=== PATIENT | female | born 2000 | race Caucasian/White ===

== ENCOUNTER 2019-11-26 17:16 | Emergency (ER) | payer BC ==
[~2019-11-26] VITALS: Ht 149.9 cm; Wt 64.6 kg
[2019-11-26 17:21] VITALS: BP 105/58
--- NOTE | 2019-11-26 18:11 | NUR ---
PT AMBULATED TO BATHROOM FOR URINE SAMPLE, STEADY GAIT.
--- NOTE | 2019-11-26 18:39 | NUR ---
19 Y/F PRESENTS WITH MOM TO ED FOR BACK PAIN "SPINAL" X 1 YEAR, PT REPORTS PAIN HAS BEEN WORSEING THIS WEEK. 10/10 INTERMITTENT PAIN, DENIES INJURY AND HAS NOT BEEN SEEN FOR THIS BEFORE. PAIN STARTS AT MID BACK AND RADIATES TO UPPER BACK. PT REPORTS TAKING ALEVE AND MOTRIN AT HOME AND NO RELIEF. PT DENIES ANY URINARY FREQUENCY OR BURNING. RR EVEN AND UNLABORED, NO DISTRESS NOTED. HX- ASTHMA NKDA
--- NOTE | 2019-11-26 19:06 | NUR ---
Pt report given to HOWIE NAVA. Transfer of care at this time.
--- NOTE | 2019-11-26 19:07 | NUR ---
RECEIVED REPORT FROM HOWIE RIZO
[2019-11-26 19:45] VITALS: BP 105/58
--- NOTE | 2019-11-26 19:46 | NUR ---
PT DC'D BY DR SINGLETON. TEACHING AND DISCHARGE INSTRUCTIONS GIVEN BY .
== END 2019-11-26 19:41 | disposition home or self-care (01) ==
LOC: MED 17:16
DX: N12 Tubulo-interstitial nephritis, not specified as acute or chronic (principal); J45.909 Unspecified asthma, uncomplicated
CPT/HCPCS: 81002; 81025; 99283

== ENCOUNTER 2020-06-28 21:55 | Inpatient (IN) | payer BC ==
[~2020-06-28] VITALS: Ht 149.9 cm; Wt 54.9 kg
[2020-06-28 22:01] VITALS: BP 129/70
--- NOTE | 2020-06-28 22:04 | NUR ---
To ED bed 09
--- NOTE | 2020-06-28 22:13 | NUR ---
PT AMBULATED TO RR WITH STEADY GAIT. DENIES NEED FOR ASSISTANCE
--- NOTE | 2020-06-28 22:15 | NUR ---
20 YO F BIB SELF FOR C/C OF 7/10 EPIGASTRIC PAIN X2 DAYS. PER PT SHE HAS HAD N/V/D X2 DAYS AND UNABLE TO HOLD DOWN FOODS/LIQUIDS. PT PRESENTS AFEBRILE AND TACCHYCARDIC. S1S2 HEARD, BOWEL SOUNDS NORMOACTIVE THROUGHOUT. PT DENIES COUGH, SOB, AND TRAVEL. PT TOOK TYLENOL AND 8MG ZOFRAN TAB AT 1800 WITHOUT RELIEF OF PAIN OR NAUSEA. PT PLACED IN GOWN AND PLACED ON CARDIAC MONIOR. BED LOCKED AND IN LOWEST POSITION. SIDE RAILS X1. MED HX: ASTHMA NKA
--- NOTE | 2020-06-28 22:25 | NUR ---
UA/labs collected and sent to lab
[2020-06-28] MEDS ORDERED: NACL 0.9% 1,000 ML IV ONE ×2 (22:30→23:00)
[2020-06-28 22:34] LABS: BASOPHILS % (AUTO) 0.5 % (0.0-2.0); EOSINOPHILS # (AUTO) 0.1 K/uL (0-0.4); EOSINOPHILS % (AUTO) 3.2 % (0.0-4.0); HEMATOCRIT 41.2 % (36-48); HEMOGLOBIN 14.3 g/dL (12.0-16.0); LYMPHOCYTES # (AUTO) 1.6 K/uL (2.5-16.5); LYMPHOCYTES % (AUTO) 36.4 % (20.5-51.1); MEAN CORPUSCULAR HEMOGLOBIN 28 pg (27-31); MEAN CORPUSCULAR HGB CONC 35 g/dL (33-37); MEAN CORPUSCULAR VOLUME 80.7 fL (80-94); MONOCYTES # (AUTO) 0.7 K/uL (0.8-1.0); MONOCYTES % (AUTO) 16.7 % (1.7-9.3); NEUTROPHILS # (AUTO) 1.9 K/uL (1.8-7.7); NEUTROPHILS % (AUTO) 43.2 % (42.2-75.2); PLATELET COUNT (AUTO) 245 K/uL (140-450); RED BLOOD CELL COUNT(AUTO) 5.11 MIL/uL (4.20-5.40); WHITE BLOOD COUNT (AUTO) 4.4 K/uL (4.8-10.8)
[2020-06-28] MEDS ORDERED: ONDANSETRON 4 MG/2 ML VIAL IVP ONE (22:45)
[2020-06-28 22:50] LABS: ALBUMIN 3.5 g/dL (3.4-5.0); ANION GAP 13.7 (8-16); CARBON DIOXIDE 26.5 mmol/L (21-32); CREATININE 0.7 mg/dL (0.6-1.3); POTASSIUM 3.2 mmol/L (3.5-5.1); TOTAL BILIRUBIN 0.6 mg/dL (0.0-1.0)
--- NOTE | 2020-06-28 22:59 | NUR ---
ERMD AT BEDSIDE
[2020-06-28] MEDS ORDERED: MORPHINE SULFATE 2 MG/ML SYR IVP ONE ×2 (23:00→23:40)
[2020-06-28] MEDS ORDERED: KETOROLAC 30 MG/ML VIAL IVP ONE (23:00)
--- NOTE | 2020-06-28 23:36 | NUR ---
PT STATES SHE IS FEELING ANXIOUS. EPIGASTRIC PAIN STILL 7/10 AT THIS TIME. PT IS TACCHYCARDIC AT 126 AFTER SECOND BOLUS FINSIHED. DANTED MADE AWARE.
--- NOTE | 2020-06-28 23:39 | NUR ---
[facility] CALLED FOR US. TECH STATED SOMEONE IS IN ROUTE FROM [place] [place].
--- NOTE | 2020-06-28 23:54 | NUR ---
CALLED PTS MICHELLE LUNDBERG PER PTS REQUEST TO BRING PTS CELL PHONE.
--- NOTE | 2020-06-29 00:02 | NUR ---
US AT BEDSIDE
[2020-06-29] MEDS ORDERED: ONDANSETRON 4 MG/2 ML VIAL IVP ONE (00:15)
--- NOTE | 2020-06-29 00:34 | NUR ---
PT HAVING EPISODE OF VOMITING POST IVP ZOFRAN. UNABLE TO TRY PO TEST DOC ASKED.
[2020-06-29 00:36] LABS: APPEARANCE,URINE CLOUDY (CLEAR); BILIRUBIN,URINE 1+ (NEGATIVE); BLOOD, URINE TRACE-I (NEGATIVE); COLOR,URINE YELLOW (YELLOW); LEUKOCYTE ESTERASE ,URINE NEGATIVE (NEGATIVE); NITRITE, URINE NEGATIVE (NEGATIVE); UGLUCOSE NEGATIVE (NEGATIVE)
[2020-06-29] MEDS ORDERED: fentaNYL citrate 0.05 MG/ML VIAL IVP ONE (00:40)
[2020-06-29] MEDS ORDERED: PIPERACILLIN/TAZOBACTAM 3.375 GM in DEXTROSE 5% 50 ML IV ONE (00:40)
[2020-06-29] MEDS ORDERED: ACETAMINOPHEN 650 MG SUPP RC ONE (00:40)
[2020-06-29] MEDS ORDERED: PIPERACILLIN/TAZOBACTAM 3.375 GM VIAL IV ONE (00:51)
[2020-06-29 00:54] LABS: RBC,URINE 0-5 /HPF (0-5)
[2020-06-29 00:55] LABS: CALCIUM OXALATE CRYSTALS,UR 0-10 /HPF (None Seen); FINE GRANULAR CASTS,URINE 0-10 /LPF (None Seen)
--- NOTE | 2020-06-29 01:03 | NUR ---
PT CONTINUES TO HAVE EPISODES OF VOMITING. PT STATES HER PAIN IS 7/10 BEFORE IVP OF FENTNYL .
[2020-06-29] MEDS ORDERED: diphenhydrAMINE 50 MG/ML VIAL IVP ONE (01:25)
[2020-06-29] MEDS ORDERED: METOCLOPRAMIDE 10 MG/2 ML INJ VIAL IVP ONE (01:25)
--- NOTE | 2020-06-29 01:37 | NUR ---
GAVE PT ONLY 12.5MG OF BENADRYL TO START PER ERMD VERBAL ORDER NADR
--- NOTE | 2020-06-29 01:54 | NUR ---
PT STATES HER N/V HAS SUBSIDED POST IVP OF REGLAN. PTS PAIN IS STILL 7/10.
--- NOTE | 2020-06-29 01:55 | NUR ---
PTS PAIN 5/10
--- NOTE | 2020-06-29 01:58 | NUR ---
ATTEMPTED TO CONTACT ADMITTING PHYSICIAN DR. FERNANDEZ REGARDING POTENTIAL UPGRADE TO TELE DUE TO PTS TACCHYCARDIA. ENDORSED PT TO MST NURSE FOR FOLLOW UP REGARDING THIS MATTER.
--- NOTE | 2020-06-29 02:15 | NUR ---
ADMITTED 20, FEMALE, NO DISTRESS, ON ROOM AIR, DENIES PAIN, AMBULATORY, RAC 20, INTACT, MRSA SWAB DONE, V/S TAKEN, SAFETY MEASURES IN PLACE, CALL LIGHT WITHIN REACH.
--- NOTE | 2020-06-29 02:15 | NUR ---
Patient will be admitted to care of [facility]. Admited to [facility]. Will go to room 106A. Belongings list completed. Report to HOWIE RALPH.
[2020-06-29] MEDS: DEXTROSE 5% 1,000 ML IV SCH ×2 (02:44→13:53)
--- NOTE | 2020-06-29 03:13 | NUR ---
INFORMED DR. FERNANDEZ ABOUT PATIENT'S HR OF 128. NO NEW ORDER. CALL LIGHT WITHIN REACH, WILL MONITOR.
[2020-06-29 04:00] VITALS: BP 101/48
--- NOTE | 2020-06-29 04:00 | NUR ---
V/S TAKEN, BP 101/48, HR WENT DOWN TO 113. NO DISTRESS, WILL MONITOR.
--- NOTE | 2020-06-29 07:20 | NUR ---
PATIENT IS IN STABLE CONDITION, DENIES PAIN, NO DISTRESS, DR. FERNANDEZ IS INSIDE THE PATIENT'S ROOM TALKING TO PATIENT. ENDORSED TO HOWIE NEFF FOR CONTINUITY OF CARE.
--- NOTE | 2020-06-29 07:26 | NUR ---
RECEIVED REPORT FROM MANAGER SCIENCE RN FOR CONTINUITY OF CARE. DR. FERNANDEZ WAS WITH THE PATIENT AT BEDSIDE. RESPIRATORY EVEN AND UNLABORED. SKIN WARM AND DRY. INTACT. IV SITE RIGHT AC 20G, INFUSING D5 @ 60 CC/HR. ON TELE MONITOR. NO ACUTE DISTRESS NOTED. SAFETY MEASURES IN PLACE, WILL CONTINUE TO MONITOR.
[2020-06-29 08:00] VITALS: BP 103/52
[2020-06-29] MEDS ORDERED: POTASSIUM CHLORIDE 10 MEQ TABER PO PRN (08:05)
[2020-06-29] MEDS ORDERED: ACETAMINOPHEN 325 MG TAB PO PRN (08:05)
[2020-06-29] MEDS ORDERED: guaiFENesin DM 200/20 MG-10 ML 10 ML UDC PO PRN (08:05)
[2020-06-29] MEDS ORDERED: DOCUSATE SODIUM 100 MG GELCAP PO PRN (08:05)
[2020-06-29] MEDS ORDERED: ZOLPIDEM 5 MG TAB PO PRN (08:05)
--- NOTE | 2020-06-29 08:35 | NUR ---
PATIENT WAS TRANSFERRED TO RADIOLOGY TO HAVE ABD/PELVIS CT. WILL FOLLOW UP
--- NOTE | 2020-06-29 08:46 | NUR ---
PATIENT WAS BROUGHT BACK TO THE FLOOR POST ABD/ PELVIS CT. WILL FOLLOW UP.
--- NOTE | 2020-06-29 08:48 | NUR ---
PATIENT HAS BEEN SCREENED AND CATEGORIZED MODERATE NUTRITION RISK. PATIENT WILL BE SEEN WITHIN 3-5 DAYS OF ADMISSION. 07/01/20 07/03/[address]
[2020-06-29] MEDS ORDERED: POTASSIUM CHLORIDE 40 MEQ, LIDOCAINE MPF 1% 25 MG in NACL 0.9% 250 ML IV SCH (09:00)
--- NOTE | 2020-06-29 09:35 | NUR ---
SOCIAL WORK NOTE: Patient's Orientation Person Situation Place Time Information Provided By PATIENT Comments SW COMPLETED ASSESSMENT WITH PATIENT TELEPHONICALLY AND VERIFIED DEMOGRAPHICS. Boat Builder, Realtionship and Phone Number TAMIKA VASQUEZ [phone] Healthcare Power of Superintendent Generating Plant No Does Patient Have a POLST No Identifying Problems No Social Work Triggers Is A Social Work Consult Needed No Mandate Report Filed No Explanation Of Identifying Problems PATIENT IS A 20-YEAR-OLD FEMALE ADMITTED FOR INTRACTABLE VOMITING. PATIENT HAS PMHX OF ASTHMA. Admitted From Home Pre-Admission Level Of Functioning Status Independent/Ambulatory Prior Resources/Services Used In Last 12 Months No Prior Resources Used Prior DME No Prior DME Used Dialysis Comments PATIENT REPORTED THAT SHE DOES NOT RECEIVE DIALYSIS. Living Situation Lives With Family House Patient Had Caregiver No Home Support No Caregiver Issues Financial Issues No Known Financial Issue Referral To The Financial Counselor Needed No Factors/Needs No D/C Needs Identified Pt/Rep Participated In Discharge Plan Yes Patient/Family Agress With Discharge Plan Yes Discharge Plan Comments TENTATIVE DISCHARGE PLAN IS FOR PATIENT TO RETURN HOME. DC Plan Status Initiated
[2020-06-29] MEDS: PANTOPRAZOLE 40 MG TABEC PO SCH (09:42)
--- NOTE | 2020-06-29 09:42 | NUR ---
Dino MCCORMICK ADMINISTERED FOR POTASSIUM LEVEL 3.2, EDUCATION PROVIDED, SAFETY MEASURES IN PLACE, WILL CONTINUE TO MONITOR.
--- NOTE | 2020-06-29 10:57 | NUR ---
DISCHARGE PLANNING: THIS IS A 20 Y/O FEMALE PATIENT FROM HOME, WHO CAME IN DUE TO ABDOMINAL PAIN, DIARRHEA AND VOMITING. NO KNOWN PAST MEDICAL HISTORY. INITIAL DIAGNOSIS OF INTRACTABLE VOMITING. CURRENT LABS INCLUDE WBC 4.4, H/H 14.3/41.2, NA/K 138/3.2, BUN/CREA 15/0.7, AST/ALT 355/258, ALK PHOS 159. GALLBLADDER US NORMAL. CXR NEGATIVE. CT ABD/PELVIS NON SPECIFIC MUCOSAL THICKENING OF THE DISTAL SMALL BOWEL WHICH MAY BE RELATED TO UNDERDISTENTION OR MILD ENTERITIS. GI CONSULT IN PLACE. DC PLAN BACK TO HOME ONCE STABLE. Addendum: 06/29/20 at 1128 by Leah Self CM CONTACTED GAUTAM MTZ OF [employer] AT [phone] TO INFORM WITH THIS ADMISSION. PER SMITH, SHE CAN HELP ME FIND THIS PATIENT HOWEVER SHE COULD NOT GUARANTEE THAT SHE CAN HELP. SHE WAS ABLE TO FIND THE PATIENT IN THEIR SYSTEM, BUT SHE COULD NOT ACCESS IT. SHE WAS ASKING IF I HAVE A UM NUMBER SO SHE CAN LOCATE IT WHICH I TOLD HER THAT WE DO NOT HAVE ONE YET. SHE ALSO INQUIRED IF WE BUILT A PROFILE ON THIS PATIENT VIA THEIR PORTAL, INFORMED HER THAT I WILL ASK ADMITTING. INFORMED VERONICA CHILDREN LIBRARIAN, HOWEVER SHE IN ON THE PHONE WITH [employer]. WILL FOLLOW UP. Addendum: 06/29/20 at 1138 by Leah Self CM PER CHILDREN LIBRARIAN ROSA, SHE IS IN THE PROCESS OF MAKING A PROFILE FOR THIS PATIENT IN THE [employer] PORTAL. Addendum: 06/30/20 at 1203 by Leah Self CM LATE ENTRY: CONTACTED GAUTAM MTZ OF [employer] [facility]. PER SMITH, THEY RECEIVED MULTIPLE FACE SHEETS AND SHE COULD NOT IDENTIFY THE EXACT ADMIT DATE. THEY RECEIVED ONE DATED Jun AND Jun. INFORMED HER THAT THE PATIENT CAME TO OUR ED ON Jun AT 2155 AND GOT ADMITTED 06/29 AT 0133. I ASKED HER IF SHE HAVE AN AVAILABLE AUTH FOR US. PER SMITH, SHE STILL HAVE TO REVIEW CLINICALS. I ALSO INQUIRED SINCE WE ARE NOT A CONTRACTED FACILITY IF THEY WANT TO TRANSFER THE PATIENT TO THEIR CONTRACTED FACILITY. SHE STATED I HAVE TO REACH OUT TO THEIR DCP COORDINATOR ALANNA AT [phone]. CONTACTED THE PROVIDED NUMBER. PER ALANNA, IF PATIENT IS STABLE TO BE TRANSFERRED, THEY ARE CONTRACTED WITH [facility] AND [facility]. INFORMED HER THAT [facility] IS OUT SISTER FACILITY. SHE STATED TO GO AHEAD AND SEND THE REFERRAL TO [facility]. AND FOR TRANSPORT WE CAN USE [facility]. INFORMED HER THAT THE ONLY AMBULANCE WE CAN USE IN [place] IS [facility]. SHE STATED THEY ARE NOT CONTRACTED WITH THEM, HOWEVER, IF PATIENT NEEDS TO BE TRANSFERRED OUT WE CAN GO AHEAD AND USE [facility]. PER DR. FERNANDEZ, PATIENT IS STABLE FOR TRANSFER TO CONTRACTED FACILITY, HOWEVER WE ARE DOING HIDA SCAN TODAY AND ANTICIPATE DC TOMORROW. ALANNA OF [facility] MADE AWARE. PER ALANNA I HAVE TO REACH OUT TO SMITH. GAUTAM MTZ MADE AWARE, SHE STATED COULD NOT PROVIDE ME ANY AUTH AT THIS TIME, REVIEW IS STILL PENDING. SHE STATED SHE CANNOT SAY IF IT IS DENIED OR APPROVED UNTIL THEIR PHYSICIAN'S DECISION. SHE STATED, SHE CAN ADD IT ON THE REVIEW THAT PATIENT WILL GET HIDA SCAN TODAY. WILL FOLLOW UP. Addendum: 06/30/20 at 1315 by Leah Self LATE ENTRY: MET WITH THE PATIENT AT THE BEDSIDE TO DISCUSS PLAN TO TRANSFER TO CONTRACTED FACILITY. PER PATIENT TO CONTACT HIS FATHER. CONTACTED PATIENT'S FATHER TAMIKA AVENDAÑO AT [phone] TO DISCUSS PLAN AND IS IN AGREEMENT. Addendum: 07/01/20 at 1147 by Leah Self CM DISCUSSED DC PLAN WITH DR. DESOUZA. PER DR. DESOUZA STILL AWAITING FOR DR. NI'S RECOMMENDATIONS. CONTACTED GAUTAM MTZ OF [employer] AT [phone], NO ANSWER. LEFT MESSAGE. Addendum: 07/01/20 at 1238 by Leah Self RECEIVED A CALL BACK FROM GAUTAM MTZ [phone] STATING A VERBAL DENIAL FROM DATES 06/29-06/30/2020. SHE ALSO STATED THEY ARE REQUESTING PEER TO PEER DELONTE WITH DR. HELEN ERVIN AT [phone]. [facility] COORDINATOR MADE AWARE. Addendum: 07/01/20 at 1418 by Stormy Clifton DC PLANNING: RECEIVED A CALL FROM [employer] SPOKE WITH ALFRED STATED THE CASE DENIES FOR THE HOSPITAL STAY FROM 06/29-07/01 AND PEER TO PEER SCHEDULED ON THURSDAY 07/05 BY [facility] SANCHEZ DEPARTMENT. GAUTAM TO FOLLOW
--- NOTE | 2020-06-29 11:15 | NUR ---
CHECKED PATIENT. RESTING IN BED, NOT IN ACUTE DISTRESS NOTED. NO BM OR LOOSE STOOL TODAY. DENIES NAUSEA, VOMITING OR DIARRHEA.
[2020-06-29 12:00] VITALS: BP 120/59
[2020-06-29 12:27] LABS: AMYLASE 83 U/L (25-115); CHOL/HDL RATIO 1.9 (1-4.5); HDL CHOLESTEROL 34 mg/dL (40-60); LDL (CALC) 23 mg/dL (60-100); MAGNESIUM 1.7 mg/dL (1.8-2.4); PHOSPHORUS 3.7 mg/dL (2.5-4.9); TRIGLYCERIDES 44 mg/dL (30-150)
[2020-06-29 12:28] LABS: FREE T4 (FREE THYROXINE) 9.98 ng/dL (0.76-1.46); THYROID STIMULATING HORMONE < 0.01 uIU/mL (0.34-3.74)
[2020-06-29 12:34] LABS: PROTHROMBIN TIME 11.1 secs (10.8-13.4)
--- NOTE | 2020-06-29 13:05 | NUR ---
MADE ROUNDS. PATIENT RESTING IN BED, WITH MILD EPIGASTRIC PAIN. PATIENT STATED THAT DOESNT NEED PAIN MEDS. NON PHARMACOLOGICAL PAIN MANAGEMENT INSTRUCTED. DISTRACTION AND RELAXATION TECHNIQUE, PATIENT VERBALIZED UNDERSTANDING. SAFETY MEASURES IN PLACE, WILL CONTINUE TO MONITOR.
--- NOTE | 2020-06-29 15:45 | NUR ---
PATIENT AWAKE, WATCHING TV, DENIES DISCOMFORT. SAFETY MEASURES IN PLACE, WILL CONTINUE TO MONITOR.
[2020-06-29 16:00] VITALS: BP 117/67
--- NOTE | 2020-06-29 19:15 | NUR ---
RECEIVED REPORT FROM KIKE RNAISHWARYA. PT AOX4 ON ROOM AIR. NO S/S RESPIRATORY DISTRESS. NO C/O PAIN AT THIS TIME. IV SITE RAC20G INTACT AND PATENT, RUNNING D5 AT 100ML/HR. SKIN WARM DRY INTACT. BOWEL SOUNDS ACTIVE. SAFETY MEASURES IN PLACE, CALL LIGHT WITHIN REACH. WILL CONTINUE TO MONITOR.
--- NOTE | 2020-06-29 19:15 | NUR ---
ENDORSED PATIENT TO STAFF ANESTHESIOLOGIST RN FOR CONTINUITY OF CARE. PATIENT IN STABLE CONDITION.
[2020-06-29 20:00] VITALS: BP 114/50
[2020-06-29] MEDS: METOCLOPRAMIDE 10 MG/2 ML INJ VIAL IVP SCH (20:08)
[2020-06-29] MEDS: FAMOTIDINE 20 MG TAB PO SCH (20:08)
--- NOTE | 2020-06-29 20:13 | NUR ---
ADMINISTERED SCHEDULED MEDS PER MD. MEDICATION EDUCATION PROVIDED. PT VERBALIZED UNDERSTANDING. CALL LIGHT WITHIN REACH WILL CONTINUE TO MONITOR
--- NOTE | 2020-06-29 21:04 | NUR ---
ADMINISTERED PRN TYLENOL DUE TO PT C/O HEADACHE. TOLERATED WELL. WILL CONTINUE TO MONITOR
--- NOTE | 2020-06-29 22:15 | NUR ---
[facility] CALLED. SCHEDULED PT TO DO HIDA SCAN AROUND 1300 TOMORROW 06/30/20. PT IS ABLE TO EAT BREAKFAST. WILL PUT PATIENT NPO AFTER BREAKFAST.
--- NOTE | 2020-06-29 23:38 | NUR ---
INFORMED PT OF SCHEDULED HIDA SCAN TOMORROW 06/30/20 AROUND 1300, TOLD HER NOT TO EAT AFTER BREAKFAST. PT VERBALIZED UNDERSTANDING. WILL CONTINUE TO MONITOR
[2020-06-30] VITALS: BP 113/64
[2020-06-30] MEDS: DEXTROSE 5% 1,000 ML IV SCH ×3 (00:39→21:06)
--- NOTE | 2020-06-30 01:15 | NUR ---
PT ASLEEP IN BED. RESPIRATIONS EVEN AND UNLABORED. WILL CONTINUE TO MONITOR
--- NOTE | 2020-06-30 02:41 | NUR ---
PT ASLEEP IN BED. RESPIRATIONS EVEN AND UNLABORED. NO DISTRESS NOTED. WILL CONTINUE TO MONITOR
--- NOTE | 2020-06-30 02:50 | NUR ---
PT HR IN THE 130S. CHECKED ON PT. PT IS AMBULATING TO TOILET. NO DISTRESS NOTED. DENIES PAIN. DENIES SOB. PT AMBULATED BACK TO BED WITH STEADY GAIT. CALL LIGHT WITHIN REACH. WILL CONTINUE TO MONITOR
[2020-06-30] MEDS: ONDANSETRON 4 MG/2 ML VIAL IM/IVP PRN ×2 (03:04→15:18)
[2020-06-30 04:00] VITALS: BP 105/64
[2020-06-30] MEDS: METOCLOPRAMIDE 10 MG/2 ML INJ VIAL IVP SCH ×3 (04:48→21:06)
[2020-06-30] MEDS: HYDROcodone/APAP 7.5/325 MG 1 TAB PO PRN ×3 (05:32→21:10)
--- NOTE | 2020-06-30 05:32 | NUR ---
PT C/O ABDOMINAL PAIN. ADMINISTERED PRN PAIN MEDICATION. NO DISTRESS NOTED. TOLERATED WELL. WILL CONTINUE TO MONITOR
[2020-06-30 06:07] LABS: HEPATITIS A ANTIBODY IGM Negative (Negative); HEPATITIS B CORE AB TOTAL Negative (Negative); HEPATITIS B SURFACE ANTIBODY Non Reactive (.); HEPATITIS B SURFACE ANTIGEN Negative (Negative)
[2020-06-30 06:11] LABS: BASOPHILS % (AUTO) 0.4 % (0.0-2.0); EOSINOPHILS # (AUTO) 0.1 K/uL (0-0.4); EOSINOPHILS % (AUTO) 3.2 % (0.0-4.0); HEMATOCRIT 33.1 % (36-48); HEMOGLOBIN 11.3 g/dL (12.0-16.0); LYMPHOCYTES # (AUTO) 1.7 K/uL (2.5-16.5); MEAN CORPUSCULAR HEMOGLOBIN 28 pg (27-31); MEAN CORPUSCULAR HGB CONC 34 g/dL (33-37); MEAN CORPUSCULAR VOLUME 81.6 fL (80-94); MONOCYTES # (AUTO) 0.7 K/uL (0.8-1.0); MONOCYTES % (AUTO) 18.5 % (1.7-9.3); NEUTROPHILS # (AUTO) 1.1 K/uL (1.8-7.7); NEUTROPHILS % (AUTO) 30.9 % (42.2-75.2); PLATELET COUNT (AUTO) 196 K/uL (140-450); RED BLOOD CELL COUNT(AUTO) 4.06 MIL/uL (4.20-5.40); RED CELL DISTRIBUTION WIDTH 13.4 % (11.6-13.7); WHITE BLOOD COUNT (AUTO) 3.7 K/uL (4.8-10.8)
[2020-06-30 06:31] LABS: ANION GAP 11.8 (8-16); CARBON DIOXIDE 24.7 mmol/L (21-32); CREATININE 0.4 mg/dL (0.6-1.3); POTASSIUM 3.5 mmol/L (3.5-5.1)
[2020-06-30 06:34] LABS: BARBITURATE, URINE NEGATIVE ng/ml (NEG <=200); BENZODIAZEPINE, URINE NEGATIVE ng/mL (NEG <=200); CANNABINOID, URINE NEGATIVE ng/mL (NEG <=50); COCAINE, URINE NEGATIVE ng/mL (NEG <=300); OPIATE, URINE NEGATIVE ng/mL (NEG <=2000); PHENCYCLIDINE SCREEN,URINE NEGATIVE ng/mL (NEG <=25)
[2020-06-30 06:34] LABS: ALBUMIN 2.7 g/dL (3.4-5.0); BILIRUBIN,DIRECT 0.2 mg/dL (0.0-0.3); TOTAL BILIRUBIN 0.5 mg/dL (0.0-1.0)
--- NOTE | 2020-06-30 07:30 | NUR ---
ENDORSED PT TO DAY RN FOR CONTINUITY OF CARE. PT IS IN STABLE CONDITION
--- NOTE | 2020-06-30 07:35 | NUR ---
RECEIVED BEDSIDE REPORT FROM NIGHTSHIFT NURSE. PT RESTING IN BED. ABLE TO MAKE NEEDS KNOWN. RESPIRATIONS EVEN AND UNLABORED WITH NO SOB OR RESPIRATORY DISTRESS. IV SITE IN RAC 20G IS CLEAN, DRY, AND INTACT. SAFETY MEASURES IN PLACE. WILL CONTINUE TO MONITOR
[2020-06-30 08:00] VITALS: BP 106/47
[2020-06-30] MEDS: PANTOPRAZOLE 40 MG TABEC PO SCH (08:47)
[2020-06-30] MEDS: FAMOTIDINE 20 MG TAB PO SCH ×2 (08:47→21:06)
--- NOTE | 2020-06-30 08:59 | NUR ---
ADMINISTERED SCHED MED PRESCRIBED PER MD ORDER. PT TOLERATED WELL. MEDICATION EDUCATION PERFORMED. PT VERBALIZED UNDERSTANDING. SAFETY MEASURES IN PLACE. WILL CONTINUE TO MONITOR
--- NOTE | 2020-06-30 09:56 | NUR ---
ADMINISTERED SCHED MED PRESCRIBED PER MD ORDER. PT TOLERATED WELL. MEDICATION EDUCATION PERFORMED. PT VERBALIZED UNDERSTANDING. SAFETY MEASURES IN PLACE. WILL CONTINUE TO MONITOR
--- NOTE | 2020-06-30 11:04 | NUR ---
PT RESTING IN BED. ABLE TO MAKE NEEDS KNOWN. RESPIRATIONS EVEN AND UNLABORED WITH NO SOB OR RESPIRATORY DISTRESS. SAFETY MEASURES IN PLACE. WILL CONTINUE TO MONITOR
[2020-06-30 12:00] VITALS: BP 100/50
--- NOTE | 2020-06-30 13:19 | NUR ---
ADMINISTERED SCHED MED PRESCRIBED PER MD ORDER. PT TOLERATED WELL. MEDICATION EDUCATION PERFORMED. PT VERBALIZED UNDERSTANDING. SAFETY MEASURES IN PLACE. WILL CONTINUE TO MONITOR
--- NOTE | 2020-06-30 13:45 | NUR ---
PT TO GO TO NUCLEAR MED FOR HIDA SCAN. WILL CONTINUE TO MONITOR
[2020-06-30] MEDS ORDERED: MORPHINE SULFATE 2 MG/ML SYR IVP SCH ×2 (14:14→14:21)
--- NOTE | 2020-06-30 14:30 | NUR ---
PT RETURNED FROM [facility]. SAFETY MEASURES IN PLACE. WILL CONTINUE TO MONITOR
--- NOTE | 2020-06-30 15:18 | NUR ---
PT COMPLAINED OF PAIN AND NAUSEA. PRN NORCO AND ZOFRAN ADMINISTERED PRESCRIBED PER MD ORDER. PT TOLERATED WELL. MEDICATION EDUCATION PERFORMED. PT VERBALIZED UNDERSTANDING. SAFETY MEASURES IN PLACE. WILL CONTINUE TO MONITOR
[2020-06-30 16:00] VITALS: BP 106/46
--- NOTE | 2020-06-30 16:43 | NUR ---
PT MOTHER CALLED PT PHONE AND WANTED TO SPEAK WITH NURSE. SPOKE WITH MOTHER AND GAVE HER AN UPDATE. MOTHER REPEATED INFORMATION BACK. WILL CONTINUE TO MONITOR
--- NOTE | 2020-06-30 18:13 | NUR ---
HOURLY ROUNDING. PT RESTING IN BED. ABLE TO MAKE NEEDS KNOWN. RESPIRATIONS EVEN AND UNLABORED WITH NO SOB OR RESPIRATORY DISTRESS. SAFETY MEASURES IN PLACE. WILL CONTINUE TO MONITOR
--- NOTE | 2020-06-30 19:17 | NUR ---
ENDORSED AT BEDSIDE FOR CONTINUITY OF CARE. PT IS STABLE
--- NOTE | 2020-06-30 19:18 | NUR ---
RECEIVED BEDSIDE REPORT FROM AM SHIFT NURSE. PT A, A O X 4, AMBULATORY. DENIES PAIN. RESPIRATIONS EVEN AND UNLABORED WITH NO SOB OR RESPIRATORY DISTRESS. IV SITE IN RAC 20G IS CLEAN, DRY, AND INTACT. SAFETY MEASURES IN PLACE. WILL CONTINUE TO MONITOR
[2020-06-30 20:00] VITALS: BP 102/50
--- NOTE | 2020-06-30 21:00 | NUR ---
PT WENT TO THE BATHROOM, AMBULATORY, STEADY GAIT. NOT IN RESPIRATORY DISTRESS, WILL MONITOR PATIENT.
--- NOTE | 2020-06-30 21:10 | NUR ---
PT C/O PAIN ABDOMEN 03/02, ADMINISTERED PAIN MEDS.WILL RE-ASSESSED.
--- NOTE | 2020-06-30 23:10 | NUR ---
PT SLEEPING, WENT TO THE BATHROOM, DENIES PAIN. NOT IN RESPIRATORY DISTRESS.
[2020-07-01] VITALS: BP 96/47
--- NOTE | 2020-07-01 | NUR ---
PT SLEEPING , COMFORTABLE IN SUPINE POSITION, DENIES PAIN, CHECKED PATIENT FREQUENTLY.
[2020-07-01 04:00] VITALS: BP 97/59
--- NOTE | 2020-07-01 04:00 | NUR ---
PT'S HEART RATE IS 121 EARLIER BECAUSE GRILL PREP COOK WAS HERE, TAKING HER LABS. RETOOK HER HEART RATE AFTER 20 MINS= 103 BPM
[2020-07-01 04:52] LABS: T4 (THYROXINE) 24.6 ug/dL (4.5 - 12.0)
[2020-07-01] MEDS: METOCLOPRAMIDE 10 MG/2 ML INJ VIAL IVP SCH ×2 (05:13→05:18)
[2020-07-01] MEDS: DEXTROSE 5% 1,000 ML IV SCH (05:19)
[2020-07-01 06:13] LABS: BASOPHILS % (AUTO) 0.2 % (0.0-2.0); EOSINOPHILS # (AUTO) 0.1 K/uL (0-0.4); EOSINOPHILS % (AUTO) 3.4 % (0.0-4.0); HEMATOCRIT 32.6 % (36-48); HEMOGLOBIN 11.2 g/dL (12.0-16.0); LYMPHOCYTES # (AUTO) 2.1 K/uL (2.5-16.5); LYMPHOCYTES % (AUTO) 50.4 % (20.5-51.1); MEAN CORPUSCULAR HEMOGLOBIN 28 pg (27-31); MEAN CORPUSCULAR HGB CONC 34 g/dL (33-37); MEAN CORPUSCULAR VOLUME 81.3 fL (80-94); MONOCYTES # (AUTO) 0.6 K/uL (0.8-1.0); MONOCYTES % (AUTO) 15.1 % (1.7-9.3); NEUTROPHILS # (AUTO) 1.3 K/uL (1.8-7.7); NEUTROPHILS % (AUTO) 30.9 % (42.2-75.2); PLATELET COUNT (AUTO) 190 K/uL (140-450); RED CELL DISTRIBUTION WIDTH 13.5 % (11.6-13.7); WHITE BLOOD COUNT (AUTO) 4.2 K/uL (4.8-10.8)
[2020-07-01 06:26] LABS: CARBON DIOXIDE 25.7 mmol/L (21-32); CREATININE 0.5 mg/dL (0.6-1.3); POTASSIUM 3.7 mmol/L (3.5-5.1)
[2020-07-01 06:32] LABS: ALBUMIN 2.6 g/dL (3.4-5.0); BILIRUBIN,DIRECT 0.1 mg/dL (0.0-0.3); TOTAL BILIRUBIN 0.5 mg/dL (0.0-1.0)
--- NOTE | 2020-07-01 07:02 | NUR ---
PT SLEEPING, DENIES PAIN, NOT IN RESPIRATORY DISTRESS, WILL ENDORSE TO NEXT SHIFT
--- NOTE | 2020-07-01 07:12 | NUR ---
RECEIVED REPORT FROM NIGHT NURSE FOR CONTINUITY OF CARE, PT IS STABLE, NO SIGN OF DISTRESS NOTED, RESPIRATIONS ARE EVEN AND UNLABORED ON ROOM AIR, PT HAS RIGHT AC 20G INFUSING D5 AT 100 ML, PT AMBULATORY, SKIN INTACT, BED IN LOW POSITION, SAFETY MEASURERS IN PLACE, INTRODUCE SELF, UPDATE WHITEBOARD, WILL CONTINUE TO MONITOR, CALL LIGHT WITHIN REACH.
[2020-07-01 08:00] VITALS: BP 109/62
--- NOTE | 2020-07-01 08:22 | NUR ---
NOTIFIED DR NI OF PT PENDING CONSULT
[2020-07-01] MEDS: FAMOTIDINE 20 MG TAB PO SCH (08:43)
[2020-07-01] MEDS: PANTOPRAZOLE 40 MG TABEC PO SCH (08:44)
--- NOTE | 2020-07-01 08:45 | NUR ---
ADMINISTERED SCHEDULED MEDICATION, MEDICATION EDUCATION PROVIDED, PT VERBALIZED UNDERSTANDING, PT TOLERATED WELL, PT IS STABLE, NO SIGNS OF DISTRESS NOTED, RESPIRATIONS ARE EVEN AND UNLABORED ON ROOM AIR, CALL LIGHT WITHIN REACH. WILL CONTINUE TO MONITOR.
[2020-07-01] MEDS ORDERED: CHLORHEXADINE GLUC 2% CLOTH TP SCH (11:00)
[2020-07-01] MEDS ORDERED: MUPIROCIN CA NASAL 2% 1GM TUBE NS SCH (11:00)
[2020-07-01] MEDS ORDERED: PROPRANOLOL 20 MG TAB PO SCH (11:25)
--- NOTE | 2020-07-01 11:37 | NUR ---
ADMINISTERED SCHEDULED MEDICATION, MEDICATION EDUCATION PROVIDED, PT VERBALIZED UNDERSTANDING, PT TOLERATED WELL, PT IS STABLE, CALL LIGHT WITHIN REACH.
[2020-07-01 12:28] VITALS: BP 111/48
--- NOTE | 2020-07-01 13:00 | NUR ---
PT OFF UNIT FOR PROCEDURE
[2020-07-01] MEDS: PROPRANOLOL 20 MG TAB PO SCH ×2 (13:20→17:00)
[2020-07-01] MEDS ORDERED: DIPHENOXYLATE /ATROPINE 2.5 MG TAB PO PRN (13:20)
[2020-07-01] MEDS ORDERED: diphenhydrAMINE 50 MG/ML VIAL ONE (13:43)
[2020-07-01] MEDS ORDERED: MIDAZOLAM 2 MG/2 ML VIAL ONE (13:43)
[2020-07-01] MEDS: fentaNYL citrate 0.05 MG/ML VIAL ONE ×2 (13:48→14:41)
--- NOTE | 2020-07-01 14:20 | NUR ---
PT BACK IN ROOM FROM PROCEDURE, PT IS STABLE, WILL CONTINUE TO MONITOR.
[2020-07-01] MEDS ORDERED: IMO2 PO (15:16)
[2020-07-01] MEDS ORDERED: PROP20TA29 PO (15:16)
[2020-07-01] MEDS ORDERED: PANT40EC PO (15:26)
[2020-07-01] MEDS ORDERED: METO25TA14 PO (15:54)
[2020-07-01 16:00] VITALS: BP 96/47
[2020-07-01] MEDS ORDERED: MIDAZOLAM 2 MG/2 ML VIAL IVP ONE (17:15)
[2020-07-01] MEDS ORDERED: fentaNYL citrate 0.05 MG/ML VIAL IVP ONE (17:15)
--- NOTE | 2020-07-01 17:30 | NUR ---
DISCHARGED INSTRUCTIONS GIVEN TO PT, PT VERBALIZED UNDERSTANDING, IV REMOVED, PT REFUSED FLU SHOT, PT STABLE, PT DISCHARGED HOME
[2020-07-02 13:51] LABS: T3 UPTAKE > 56 % (24 - 39)
== END 2020-07-01 17:30 | disposition home or self-care (01) | DRG 392 ==
LOC: MED 21:55 → MTU 06-29 01:33
PROVIDERS: ADMIT Family Medicine; ATTEND Family Medicine
PROC: 0DJ08ZZ Inspection of Upper Intestinal Tract, Via Natural or Artificial Opening Endoscopic (ICD-10-PCS; principal; 2020-07-01 15:50)
DX: K52.9 Noninfective gastroenteritis and colitis, unspecified (principal); E86.0 Dehydration; E87.6 Hypokalemia; D72.819 Decreased white blood cell count, unspecified; D64.9 Anemia, unspecified; E83.42 Hypomagnesemia; E05.90 Thyrotoxicosis, unspecified without thyrotoxic crisis or storm; R74.01 Elevation of levels of liver transaminase levels
CPT/HCPCS: 36415; 71045; 76705; 78445; 80048; 80053; 80076; 80305; 81001; 81025; 82150; 83036; 83690; 83735; 83880; 84100; 84436; 84439; 84443; 84479; 84484; 85025; 85610; 85730; 86140; 86704; 86706; 86708; 86709; 86803; 87081; 87086; 87340; 96365; 96375; 96376; 99285; A9510; J1200; J1885; J2001; J2250; J2270; J2405; J2543; J2765; J3010; J3480; J7030; J7060; Q0092

== ENCOUNTER 2020-07-05 22:52 | Inpatient (IN) | payer BC ==
[~2020-07-05] VITALS: Ht 149.9 cm; Wt 54.9 kg
[~2020-07-05 22:52] MED LIST: IMO2 PO; METO25TA14 PO; PANT40EC PO
[2020-07-05 22:54] VITALS: BP 98/81
--- NOTE | 2020-07-05 23:00 | NUR ---
PT AMBUALTED TO BED 11 WITH STEADY GAIT.
--- NOTE | 2020-07-05 23:00 | NUR ---
PT 20 Y/O FEMALE BIB SELF FOR C/O N/V X 1 WEEK. PT STATES, " THE VOMITING COMES AND GOES FOR 1 WEEK." PT STATES 4/10 UMBILICAL PAIN PROVOKED BY VOIMITNG. PT ABD IS SOFT, FLAT, AND NON-TENDER TO TOUCH. PT BS PRESENT X 4 QUADRANTS. PT STATES, "I TOOK 5 ASPRIN PILLS X 1 WEEK AGO BECAUSE I HAD STOMACH PAIN." PT RESPIRATIONS ARE EVEN AND UNLABORED. O2SAT @ 100% ON RA. SKIN IS WARM AND DRY TO TOUCH. PT ON MILK BOTTLER. BED LOCKED AND IN LOWEST POSTION. BEDSIDE RAIL UP X 1.
--- NOTE | 2020-07-05 23:12 | NUR ---
Dr. Abbott examining patient.
--- NOTE | 2020-07-05 23:12 | NUR ---
EKG BEING PERFORMED AT BEDSIDE.
--- NOTE | 2020-07-05 23:15 | NUR ---
IV PLACED IN L AC 20 G. IV SITE PATENT.
[2020-07-05] MEDS ORDERED: HALOPERIDOL IM 5 MG/ML VIAL IVP ONE (23:20)
[2020-07-05] MEDS ORDERED: KETOROLAC 30 MG/ML VIAL IVP ONE (23:20)
[2020-07-05] MEDS ORDERED: ONDANSETRON 4 MG/2 ML VIAL IVP ONE (23:20)
[2020-07-05] MEDS ORDERED: NACL 0.9% 1,000 ML IV ONE (23:20)
[2020-07-05 23:49] LABS: BASOPHILS # (AUTO) 0.1 K/uL (0.00-0.22); BASOPHILS % (AUTO) 0.6 % (0.0-2.0); EOSINOPHILS % (AUTO) 0.1 % (0.0-4.0); HEMATOCRIT 44.8 % (36-48); HEMOGLOBIN 15.2 g/dL (12.0-16.0); LYMPHOCYTES # (AUTO) 1.7 K/uL (2.5-16.5); LYMPHOCYTES % (AUTO) 19.8 % (20.5-51.1); MEAN CORPUSCULAR HEMOGLOBIN 28 pg (27-31); MEAN CORPUSCULAR HGB CONC 34 g/dL (33-37); MEAN CORPUSCULAR VOLUME 81.4 fL (80-94); MONOCYTES # (AUTO) 0.7 K/uL (0.8-1.0); MONOCYTES % (AUTO) 8.5 % (1.7-9.3); NEUTROPHILS # (AUTO) 6.2 K/uL (1.8-7.7); PLATELET COUNT (AUTO) 359 K/uL (140-450); RED CELL DISTRIBUTION WIDTH 13.1 % (11.6-13.7); WHITE BLOOD COUNT (AUTO) 8.7 K/uL (4.8-10.8)
[2020-07-06] VITALS (9 sets, daily range): BP systolic 99–126; BP diastolic 47–76
[2020-07-06 00:10] LABS: ALBUMIN 4.4 g/dL (3.4-5.0); ANION GAP 27.7 (8-16); CARBON DIOXIDE 17.1 mmol/L (21-32); CREATININE 0.8 mg/dL (0.6-1.3); POTASSIUM 4.8 mmol/L (3.5-5.1); TOTAL BILIRUBIN 1.7 mg/dL (0.0-1.0)
[2020-07-06 00:19] LABS: FREE T4 (FREE THYROXINE) 63.69 ng/dL (0.76-1.46); THYROID STIMULATING HORMONE < 0.01 uIU/mL (0.34-3.74)
[2020-07-06] MEDS ORDERED: NACL 0.9% 1,000 ML IV ONE (00:20)
[2020-07-06] MEDS ORDERED: PANTOPRAZOLE 40 MG INJ VIAL IVP ONE (00:20)
[2020-07-06] MEDS ORDERED: methIMAzole 5 MG TAB PO ONE (00:35)
--- NOTE | 2020-07-06 00:55 | NUR ---
Patient appears to be resting comfortably in bed. Vital Signs within normal limits. Respirations even and unlabored.
[2020-07-06] MEDS ORDERED: PROP20TA28 PO (01:13)
--- NOTE | 2020-07-06 01:22 | NUR ---
MARILY MADE AWARE OF PT HR: 0137. NO NEW ORDERS AT THIS TIME. Addendum: 07/06/20 at 0210 by [email or web address] *HR:[id number]
--- NOTE | 2020-07-06 01:45 | NUR ---
Patient appears to be resting comfortably in bed. Respirations even and unlabored. Patient remains on surveillance monitor.
--- NOTE | 2020-07-06 02:00 | NUR ---
Patient will be admitted to care of DR. FERNANDEZ. Admited to TELE. Will go to room 108B. Belongings list completed. Report to CAMACHO RODRIGUEZ.
--- NOTE | 2020-07-06 02:15 | NUR ---
Admitted from ER TO TELEMETRY UNIT , with chief complaint of VOMITING, 20 y/o ,Female, Cooperative, AWAKE, A/OX4. RESPIRATION EVEN AND UNLABORED. IV SALINE LOCK AT THE LEFT AC, G20, PATENT AND INTACT. ABLE TO AMBULATE BY HERSELF. HEAD TO TOE ASSESSMENT DONE WITH CHARGE NURSE NEO, SKIN IS INTACT. WITH INTERMITTENT VOMITING LIQUIDS, SMALL TO MODERATE AMOUNT. ICE CHIPS GIVEN. oriented to call light, bed, phone,television, bathroom, smoking policy,visiting hours, procedures, ID bracelet on. Belongings list checked. DENIES PAIN 0/10. TACHYCARDIA ON TELE -140s TO 154. WILL CALL MD FOR ORDERS.
--- NOTE | 2020-07-06 03:00 | NUR ---
SENT A MESSAGE TO DR. FERNANDEZ.
--- NOTE | 2020-07-06 03:15 | NUR ---
ABLE TO FALL ASLEEP. NO DISTRESS NOTED.
--- NOTE | 2020-07-06 04:40 | NUR ---
INFORMED DR. FERNANDEZ PATIENT HR IS TILL HIGH - 139. NOT IN DISTRESS AT THIS TIME. WILL SEE PATIENT TODAY BEFORE GIVING ORDERS.
[2020-07-06] MEDS ORDERED: DEXT 5% /NACL 0.9% 1,000 ML IV SCH (05:00)
[2020-07-06] MEDS ORDERED: ONDANSETRON 4 MG/2 ML VIAL IVP PRN (05:10)
--- NOTE | 2020-07-06 05:40 | NUR ---
NAUSEATED, VOMITTED SMALL AMOUNT OF CLEAR LIQUIDS. MEDICATED WITH ZOFRAN IVP BY HOWIE RIOS.
--- NOTE | 2020-07-06 06:30 | NUR ---
NO N/V NOTED, SLEEPING IN BED COMFORTABLY.
--- NOTE | 2020-07-06 07:14 | NUR ---
RESTING COMFORTABLY IN BED, ENDORSED TO AM SHIFT NURSE FOR CONTINUITY OF CARE.
--- NOTE | 2020-07-06 07:15 | NUR ---
RECEIVED REPORT FROM CAMACHO CARRILLO LVN. PT CAME FROM HOME. CC: V/D X 1DAY. DX: HYPERTHYROID, DEHYDRATION, INTRACTABLE VOMITING. HX: ANXIETY, ASTHMA. PT RUNS ST ON TELE. IV: LAC 20G. PT IS ON REGULAR DIET. SKIN IS INTACT. PLAN: MONITOR BMP, CT SHOWS ENLARGED GALLBLADDER. PT REFUSED FLU VACCINE.
[2020-07-06] MEDS ORDERED: ZOLPIDEM 5 MG TAB PO PRN (08:00)
[2020-07-06] MEDS ORDERED: ONDANSETRON 4 MG/2 ML VIAL IM/IVP PRN (08:00)
[2020-07-06] MEDS ORDERED: guaiFENesin DM 200/20 MG-10 ML 10 ML UDC PO PRN (08:00)
[2020-07-06] MEDS ORDERED: HYDROcodone/APAP 7.5/325 MG 1 TAB PO PRN (08:00)
[2020-07-06] MEDS ORDERED: ACETAMINOPHEN 325 MG TAB PO PRN (08:00)
[2020-07-06] MEDS ORDERED: POTASSIUM CHLORIDE 10 MEQ TABER PO PRN (08:00)
[2020-07-06] MEDS ORDERED: DOCUSATE SODIUM 100 MG GELCAP PO PRN (08:00)
--- NOTE | 2020-07-06 08:00 | NUR ---
PT HAD 1 EPISODE OF VOMITING. 150ML OF EMESIS OUT. PT FEELS HOT THE TOUCH. WILL CONTINUE TO MONITOR.
[2020-07-06] MEDS ORDERED: methIMAzole 5 MG TAB PO SCH ×2 (08:25→13:00)
[2020-07-06] MEDS: NACL 0.9% 1,000 ML IV SCH (08:44)
--- NOTE | 2020-07-06 08:44 | NUR ---
PATIENT HAS BEEN SCREENED AND CATEGORIZED HIGH NUTRITION RISK. PATIENT WILL BE SEEN WITHIN 1-2 DAYS OF ADMISSION. 07/06/20-07/07/[address]
--- NOTE | 2020-07-06 08:44 | NUR ---
PTS HEART RATE ON TELE WAS 157, HER BLOOD PRESSURE WAS 118/47. DR FERNANDEZ NOTIFIED.
--- NOTE | 2020-07-06 09:00 | NUR ---
DR FERNANDEZ CAME TO SEE PT. DR FERNANDEZ PLACED A CONSULT WITH DR WILLIS TO SEE PT REGARDING HYPERTHYROIDISM.
[2020-07-06] MEDS ORDERED: ONDANSETRON 8 MG in NACL 0.9% 50 ML IV PRN (09:20)
--- NOTE | 2020-07-06 09:37 | NUR ---
DR WILLIS INITIATED TRANSFER TO ICU FOR CLOSER MONITORING.
--- NOTE | 2020-07-06 09:37 | NUR ---
SOCIAL WORK NOTE: Patient's Orientation Unable To Assess Information Provided By TAMIKA AVENDAÑO - FATHER Comments SW WAS UNABLE TO MEET PATIENT AT BEDSIDE. SW COMPLETED ASSESSMENT WITH PATIENT'S FATHER AND VERIFIED DEMOGRAPHICS. Chain Puller, Realtionship and Phone Number TAMIKA VASQUEZ [phone] Healthcare Power of Vocational Technical Education Teacher No Does Patient Have a POLST No Identifying Problems No Social Work Triggers Is A Social Work Consult Needed No Mandate Report Filed No Explanation Of Identifying Problems PATIENT IS A 20-YEAR-OLD FEMALE ADMITTEED FOR HYPERTHYROID AND DEHYDRATION. PATIENT HAS PMHX OF ASTHMA. PER PATIENT'S FATHER, PATIENT HAS NO HISTORY OF SUBSTANCE ABUSE OR MENTAL HEALTH. Admitted From Home Pre-Admission Level Of Functioning Status Independent/Ambulatory Prior Resources/Services Used In Last 12 Months No Prior Resources Used Prior DME No Prior DME Used Dialysis Comments PER PATIENT'S FATHER, PATIENT DOES NOT RECEIVE DIALYSIS. Living Situation House Patient Had Caregiver No Home Support No Caregiver Issues Financial Issues No Known Financial Issue Factors/Needs No D/C Needs Identified Explanation And Or Other Factors Affecting/Possible DC Needs PATIENT'S FATHER STATED HE WOULD PICK PATIENT UP AT DISCHARGE. Pt/Rep Participated In Discharge Plan Yes Patient/Family Agress With Discharge Plan Yes Discharge Plan Comments TENTATIVE DISCHARGE PLAN IS FOR PATIENT TO RETURN HOME. DC Plan Status Initiated
--- NOTE | 2020-07-06 09:45 | NUR ---
DR. HOLLIDAY AT BEDSIDE TO PT. Addendum: 07/06/20 at 1144 by Antoinette Padilla RN RN INCORRECT PT
[2020-07-06] MEDS ORDERED: POTASSIUM IODIDE 30 GM/30 ML BTL PO ONE (09:50)
--- NOTE | 2020-07-06 10:00 | NUR ---
TRANSFERRED PT TO ICU, BED 5. GAVE REPORT TO COMMUNITY WORKERHOWIE BRADLEY
[2020-07-06] MEDS ORDERED: propylthiouraciL 50 MG TAB PO SCH (10:05)
[2020-07-06] MEDS ORDERED: HYDROCORTISONE NA SUCC 100 MG/2 ML VIAL IV SCH (10:05)
--- NOTE | 2020-07-06 10:13 | NUR ---
DISCHARGE PLANNING: THIS IS A 20 Y/O FEMALE PATIENT FROM HOME, WHO CAME IN DUE TO VOMITING. PAST MEDICAL HISTORY INCLUDE ASTHMA AND PREVIOUS PYELONEPHRITIS. INITIAL DIAGNOSIS OF INTRACTABLE VOMITING. CURRENT LABS INCLUDE WBC 8.7, H/H 15.2/44.8, NA/K 139/4.8, BUN/CREA 24/0.8, AST/ALT 137/171, ALK PHOS 216. GALLBLADDER US NORMAL. CXR NEGATIVE. PULM, CARDIO AND ENDO CONSULTS IN PLACE. DC PLAN BACK TO HOME ONCE STABLE. Addendum: 07/06/20 at 1022 by Leah Self CM PER DR. FERNANDEZ, PATIENT IS STABLE FOR TRANSFER TO A CONTRACTED FACILITY. CONTACTED GAUTAM MTZ OF [employer] AT [phone], NO ANSWER. LEFT MESSAGE. Addendum: 07/06/20 at 1104 by Leah Self CM RECEIVED A CALL BACK FROM GAUTAM MTZ OF [employer]. UPDATED HER OF THE PATIENT'S CONDITION. I ALSO INQUIRED IF THEY WANT TO TRANSFER THE PATIENT TO THEIR CONTRACTED FACILITY. PER GAUTAM MTZ, IT IS NOT UP TO THEM AND IT IS UP TO THE PHYSICIAN. SHE STATED TO LET THE PATIENT KNOW TO CALL CUSTOMER SERVICES AT [phone] TO INQUIRE ABOUT THEIR CO PAYMENT FOR NON PAR. SHE ALSO MENTIONED TO CALL [facility] AT [phone] FOR ANY DC PLAN ASSISTANCE. CONTACTED PATIENT'S FATHER TAMIKA AVENDAÑO AT [phone] TO DISCUSS TRANSFER TO CONTRACTED FACILITY AND IS IN AGREEMENT. HE STATED IF I CAN SPEAK TO HIS DAUGHTER MARGARET. PER MARGARET HE IS IN AGREEMENT WITH THE TRANSFER TO CONTRACTED FACILITY. I ALSO INFORMED THEM TO CALL [employer] CUSTOMER [employer] AT [phone] TO INQUIRE ABOUT THEIR NON PAR BENEFITS. PER MARGARET, SHE WILL CALL RIGHT NOW. WILL FOLLOW UP. Addendum: 07/06/20 at 1123 by Leah Self SPOKE TO MARGARET [facility] AT [phone], INFORMED HER THAT PATIENT IS STABLE FOR TRANSFER TO CONTRACTED FACILITY. SHE STATED THEY ARE CONTRACTED WITH [facility], [facility] AND [place]. REFERRAL SENT. Addendum: 07/06/20 at 1206 by Leah Self CM CONTACTED [facility] AT [phone] AND REQUESTED TO BE TRANSFERRED TO FIRER HELPER. ABLE TO SPEAK TO LANDEN LAINEZ, PROVIDED HIM OF THE PATIENT'S INFORMATION. PER ROBER TO GO AHEAD AND FAX IT TO [phone]. CM WILL FOLLOW UP. RECEIVED A CALL BACK FROM MARGARET OF [employer]. PROVIDED ME WITH FAX NUMBER [phone] TO SEND ORDER AND CLINICALS. CLINICALS AND POST STABILIZATION FORM SENT TO THE PROVIDED NUMBER. CONTACTED [facility] AT [phone], ABLE TO SPEAK TO ANNALISE. PER ANNALISE THEY DID NOT RECEIVE THE PACKET YET. PROVIDED HER ALL THE INFORMATION SHE NEEDED. SHE STATED SHE WILL FOLLOW UP WITH ME. Addendum: 07/06/20 at 1210 by Leah Self CM CONTACTED [facility] FIRER HELPER, NO ANSWER. LEFT MESSAGE. Addendum: 07/06/20 at 1316 by Leah Self CM PER ROMAN [facility] THEY ARE REQUIRING FOR COVID TESTING PRIOR TO TRANSFER AND RAPID TESTING IS OK. DR. FERNANDEZ MADE AWARE. ORDER PLACED. CHARGE NURSE ELIAZAR MADE AWARE. Addendum: 07/06/20 at 1319 by Leah Self CM PER ANNALISE OF [facility], THEY WILL BE REQUIRING AUTH FOR THE TRANSFER. CONTACT ARTURO ROBLES OF [employer], NO ANSWER. LEFT MESSAGE. WILL FOLLOW. Addendum: 07/06/20 at 1333 by Leah Self CM PER ANANLISE OF [facility], THEIR PHYSICIAN IS REVIEWING IT RIGHT NOW AND STATED WHY DO WE HAVE TO TRANSFER THE PATIENT WHEN THE INSURANCE IS PPO. INFORMED HER THAT WE ARE NOT CONTRACTED WITH [employer]. SHE STATED SHE WILL CALL ME BACK IF THE DOC WILL BE ABLE TO ACCEPT. Addendum: 07/06/20 at 1338 by Leah Self CM PER ROBER CASTANEDA AT [facility], THEY ARE WITH THE FINANCIAL PART OF IT AND IN THE PROCESS OF MD TO MD CALL. WILL FOLLOW UP. Addendum: 07/06/20 at 1412 by Leah Self CM PER ANNALISE AT [facility], THEIR MD REVIEWED THE REFERRAL AND STATED THAT THERE IS NO REASON FOR TRANSFER SINCE WE ARE ABLE TO MANAGE THE CARE. SHE ALSO STATED THAT THEY WILL BE REQUIRING AN AUTH FOR THE TRANSFER WELL. Addendum: 07/06/20 at 1433 by Leah Self CM PER DR. QUIROS OF [facility], THEY ARE NOT ABLE TO ACCEPT THE PATIENT. HE STATED THAT THEIR IS NOT MUCH THEY CAN DO THAT WE CANNOT DO HERE. REACHED OUT TO [facility], ABLE TO SPEAK TO MARTA. PER MARTA, WE NEED TO HAVE AN ACCEPTING DOC FIRST. SHE STATED SHE WILL TRANSFER ME TO THE EMERGENCY ROOM NUMBER SO I CAN GET THE INFO OF THE ON HOSPITALIST. ABLE TO SPEAK TO [facility], SHE STATED THEIR CONCESSION SUPERVISOR FOR [employer] IS DR. MO GOINS [phone]. DR. FERNANDEZ MADE AWARE. PER DR. FERNANDEZ, HE WILL CALL. Addendum: 07/06/20 at 1435 by Leah Self CM CONTACTED [facility] MARGARET AT [employer] [place], NO ANSWER. LEFT MESSAGE. WILL FOLLOW UP. Addendum: 07/06/20 at 1449 by Leah Shishilpi GAUTAM CONTACTED MARGARET [facility] AGAIN, NO ANSWER. LEFT MESSAGE. Addendum: 07/06/20 at 1616 by Leah Self CONTACTED [id number], ABLE TO SPEAK TO JOSE GUADALUPE TO FOLLOW UP ON COVID RESULTS. PER JOSE GUADALUPE IT 'S IN PROCESS. RECEIVED A CALL BACK FROM ARTURO ROBLES AT [facility]. INFORMED HER THAT [facility] AND [facility] ARE NOT ABLE TO ACCEPT THE PATIENT. SHE PROVIDED ME WITH 3 MORE CONTRACTED FACILITIES [phone], [facility] [phone], [facility] [phone]. CONTACTED [facility] AT [phone], ABLE TO SPEAK TO [facility] FIRER HELPER. SHE STATED THAT I HAVE TO CONTACT ED OR CASE MANAGEMENT. SHE STATED SHE CAN TRANSFER ME TO CASE MANAGEMENT. ABLE TO SPEAK TO GAUTAM WYATT, SHE STATED I HAVE TO SPEAK TO ADMITTING FIRST SO THEY CAN RUN THE INSURANCE. SHE STATED SHE WILL TRANSFER ME TO ADMITTING. ABLE TO SPEAK TO DWIGHT. PER DWIGHT, I HAVE TO SPEAK TO THE FIRER HELPER. INFORMED DWIGHT THAT I ALREADY SPOKE TO FIRER HELPER AND SHE REFERRED ME TO CASE MANAGEMENT AND GOT TRANSFERRED TO ADMITTING. DWIGHT PROVIDED ME WITH FAX NUMBER [phone] TO SEND REFERRAL. REFERRAL SENT TO THE PROVIDED NUMBER. WILL FOLLOW UP. RECEIVED A CALL FROM DR. FERNANDEZ, STATING THAT HE WAS ABLE TO DO A DOC TO DOC CALL WITH DR. GOINS AND IS ABLE TO ACCEPT THE PATIENT. CONTACTED [facility] BED CONTROL, ABLE TO SPEAK TO ROMAN. [facility]AN CONFIRMED THAT THEY ARE ABLE TO ACCEPT THE PATIENT AND IS PENDING BED NUMBER. PER ROMAN THEY HAVE 9 TELE PATIENTS IN THEIR ED WAITING HOWEVER THEY WILL HAVE SOME DISCHARGES WELL. PROVIDED HER WITH FIRER HELPER'S AND UNIT'S NUMBER IF IN ANY CASE BED WILL BE AVAILABLE AFTER HOURS. CONTACTED ARTURO ROBLES OF [facility], NO ANSWER. LEFT MESSAGE. WILL CALL TRANSPORT WAS SET UP WITH PINKY WITH [facility]. CHARGE NURSE ELIAZAR MADE AWARE OF ACCEPTING FACILITY AND WILL CALL TRANSPORT. PATIENT'S FATHER TAMIKA AVENDAÑO MADE AWARE OF THE ACCEPTING FACILITY AND DOC. PROVIDED HIM OF ZORAN AMARO'S ADDRESS AND PHONE NUMBER. INFORMED HIM THAT THE NURSE WILL BE CALLING HIM FOR THE ROOM NUMBER. Addendum: 07/06/20 at 1616 by Leah Self CM COVID TEST RESULT CAME BACK NEGATIVE, COPY OF RESULT SENT TO [facility].
[2020-07-06] MEDS ORDERED: PROPRANOLOL 20 MG TAB PO SCH (10:15)
--- NOTE | 2020-07-06 10:15 | NUR ---
RECEIVED HANDOFF REPORT FROM FORENSIC NURSE. PT IS A&OX4, CURRENTLY RESTING IN BED. PT IS ON ROOM AIR, SATTING 99%. SINUS TACHYCARDIA ON MANUFACTURING PROCESS ENGINEER AT THIS TIME. PT HAS ACCESS AT LAC 20 G, WITH NS RUNNING AT 60 ML/HR. PT IS ON LIQUID CLEAR DIET. PT COMPLAINT OF CHEST PAIN 5/10, BUT ALREADY RECEIVED MEDICATION FOR IT ON TELEMTRY UNIT BEFORE TRANSFER. HOB IS 30 DEGREES, WITH BED IN LOW, LOCKED POSITION. WILL CONTINUE TO MONITOR CLOSELY.
--- NOTE | 2020-07-06 10:15 | NUR ---
CALLED PTS FAMILY TO NOTIFY THEM ON THEIR DAUGHTERS TRANSFER TO ICU. I TOLD THEM ANY FURTHER QUESTIONS REGARDING TH EPTS CARE SHOULD BE DIRECTED TO [facility].
[2020-07-06 10:21] LABS: PROTHROMBIN TIME 11.8 secs (10.8-13.4)
[2020-07-06 10:27] LABS: MAGNESIUM 1.6 mg/dL (1.8-2.4); PHOSPHORUS 3.1 mg/dL (2.5-4.9)
[2020-07-06] MEDS ORDERED: POTASSIUM IODIDE/IODINE 5% 14 ML BTL PO SCH (10:35)
--- NOTE | 2020-07-06 10:45 | NUR ---
MEDICATIONS ADMINISTERED PER ORDER, PT TOLERATED WELL. WILL CONTINUE TO MONITOR CLOSELY.
[2020-07-06] MEDS ORDERED: NACL 0.9% 1,000 ML IV SCH (10:50)
--- NOTE | 2020-07-06 10:55 | NUR ---
DR. GARCIA AT BEDSIDE TO SEE PT.
[2020-07-06 11:12] LABS: FREE T4 (FREE THYROXINE) 8.59 ng/dL (0.76-1.46)
--- NOTE | 2020-07-06 11:40 | NUR ---
DR. MORENO AT BEDSIDE TO SEE PT. Addendum: 07/06/20 at 1144 by Antoinette Padilla RN RN INCORRECT PT
[2020-07-06] MEDS: PROPRANOLOL 20 MG TAB PO SCH ×4 (12:29→23:34)
[2020-07-06] MEDS: HYDROCORTISONE NA SUCC 100 MG/2 ML VIAL IV SCH ×2 (12:29→20:34)
[2020-07-06] MEDS: POTASSIUM IODIDE/IODINE 5% 14 ML BTL PO SCH ×2 (12:30→17:43)
[2020-07-06] MEDS: propylthiouraciL 50 MG TAB PO SCH ×3 (12:31→23:34)
--- NOTE | 2020-07-06 12:45 | NUR ---
MEDICATIONS ADMINISTERED PER ORDER, PT TOLERATED WELL. PT HELPED TO BEDSIDE COMMODE, VOIDED TWICE. TEMPERATURE 98.4. WILL CONTINUE TO MONITOR.
[2020-07-06 13:25] LABS: BILIRUBIN,URINE 1+ (NEGATIVE); BLOOD, URINE TRACE-I (NEGATIVE); COLOR,URINE YELLOW (YELLOW); LEUKOCYTE ESTERASE ,URINE TRACE (NEGATIVE); NITRITE, URINE NEGATIVE (NEGATIVE); PH,URINE 5.5 (5.0-9.0); UGLUCOSE NEGATIVE (NEGATIVE)
[2020-07-06 13:31] LABS: RBC,URINE 0-5 /HPF (0-5)
[2020-07-06 13:32] LABS: APPEARANCE,URINE HAZY (CLEAR)
--- NOTE | 2020-07-06 13:55 | NUR ---
07/06/20 RD INITIAL ASSESSMENT COMPLETED PLEASE REFER TO NUTRITION ASSESSMENT UNDER CARE ACTIVITY FOR ESTIMATED NUTRITIONAL NEEDS. 1. CONTINUE CLEAR LIQUID DIET TOLERATED 2. RECOMMEND ENSURE CLEAR TID 3. WHEN MEDICALLY CLEARED, ADVANCE TO REGULAR DIET 4. RD TO FOLLOW-UP 2-3 DAYS, HIGH RISK JIGNA FAM, RD
[2020-07-06 14:04] LABS: BARBITURATE, URINE NEGATIVE ng/ml (NEG <=200); BENZODIAZEPINE, URINE NEGATIVE ng/mL (NEG <=200); CANNABINOID, URINE NEGATIVE ng/mL (NEG <=50); COCAINE, URINE NEGATIVE ng/mL (NEG <=300); OPIATE, URINE POSITIVE ng/mL (NEG <=2000); PHENCYCLIDINE SCREEN,URINE NEGATIVE ng/mL (NEG <=25)
--- NOTE | 2020-07-06 15:26 | NUR ---
MEDICATIONS ADMINISTERED PER ORDER, PT TOLERATED WELL.
--- NOTE | 2020-07-06 17:48 | NUR ---
MEDICATIONS ADMINISTERED PER ORDER, PT TOLERATED WELL. PT SITTING UP IN BED EATING DINNER. WILL CONTINUE TO MONITOR.
--- NOTE | 2020-07-06 18:13 | NUR ---
SPOKE TO PTS FAMILY TO UPDATE THEM ON PTS CONDITION PER PT REQUEST.
--- NOTE | 2020-07-06 19:00 | NUR ---
HANDOFF GIVEN TO QA TESTER RN FOR CONTINUITY OF CARE.
--- NOTE | 2020-07-06 19:30 | NUR ---
RECEIVED REPORT FROM AM SHIFT. PT IS ALERT ORIENTED X4, NO S/S OF RESP DISTRESS,NO SOB. PT CONT ON ROOM AIR. CLEAR TO BILATERAL LUNGS. CONT ON CARDIAC MONITORING SHOWS ST. SKIN WARM TO TOUCH. IV LINE TO LEFT AC NO 20. IVF NS AT 60 CC/HR RUNNING WELL. ABD SOFT NON DISTENDED. DENIES ANY PAIN. NO C/O NAUSEA, NO VOMITING AT THIS TIME. PT ABLE TO USE BED SIDE COMMODE. GENTLE CARE GIVEN. CALL LIGHT IN REACH.
[2020-07-06] MEDS ORDERED: cefTRIAXone 1,000 MG VIAL ONE (20:08)
--- NOTE | 2020-07-06 20:45 | NUR ---
NIGHT MEDS GIVEN AR WELL. PT USING BED SIDE COMMODE AND URINATE X1 ABOUT 300CC. PT BACK TO BED AND SLEEP.
[2020-07-06] MEDS ORDERED: METOPROLOL 25 MG TAB PO SCH (21:00)
--- NOTE | 2020-07-06 23:30 | NUR ---
PT URINATE X1 IN THE BED SIDE COMMODE.
[2020-07-07 00:01] VITALS: BP 106/56
--- NOTE | 2020-07-07 00:17 | NUR ---
PT SLEEPING WELL. NO DISTRESS NOTED
[2020-07-07] MEDS: NACL 0.9% 1,000 ML IV SCH (00:36)
[2020-07-07 02:00] VITALS: BP 116/52
--- NOTE | 2020-07-07 02:05 | NUR ---
PLACED CALL TO [facility] AND SPEAK WITH VICKY THE LEAD CYTOGENETIC TECHNOLOGIST REGARDING VACANT BED FOR PT. SHE SAID THEY JUST HAVE OPEN BED AND SHE SAID PT WILL GO TO ROOM 329.
[2020-07-07 02:12] VITALS: BP 108/40
--- NOTE | 2020-07-07 02:20 | NUR ---
PLACED CALL TO TELE UNIT [facility] AND REPORT GIVEN TO YOCASTA DENISE. MADE AWARE THAT PT IS STABLE TO TRANSFER ,HX AND DX INFORMED. PT AWARE THAT SHE WILL TRANSFER TO [facility] AND SIGN THE TRANSFER CONSENT. REQUEST AMBULANCE TO [facility] AND THEY SAID WILL MASTER LAY OUT SPECIALIST AROUND 3 AM.
--- NOTE | 2020-07-07 03:01 | NUR ---
AT 0245 [facility] ARRIVED,REPORT GIVEN TO [facility] STAFF . AT 0250 PT LEFT WITH 2 [facility] STAFF TO [facility]. PT ALERT AND ORIENTED X4, NO S/S RESP DISTRESS, NO SOB, DENIAL ANY PAIN. PT IN ROOM AIR STABLE TO TRANSFER.
[2020-07-07] MEDS ORDERED: ENOXAPARIN 40 MG/0.4 ML SYR SUBQ SCH (09:00)
[2020-07-07] MEDS ORDERED: PANTOPRAZOLE 40 MG TABEC PO SCH (09:00)
[2020-07-07 13:47] LABS: T3 UPTAKE > 56 % (24 - 39)
== END 2020-07-07 02:50 | disposition short-term general hospital (02) | DRG 393 ==
LOC: MED 22:52 → MTU 07-06 00:55 → MMU 07-06 01:18 → MTU 07-06 01:35 → MIC 07-06 10:07
PROVIDERS: ADMIT Family Medicine; ATTEND Family Medicine
DX: K92.9 Disease of digestive system, unspecified (principal); E05.91 Thyrotoxicosis, unspecified with thyrotoxic crisis or storm; E87.2 Acidosis; E87.3 Alkalosis; K52.9 Noninfective gastroenteritis and colitis, unspecified; E86.0 Dehydration; I10 Essential (primary) hypertension; J45.909 Unspecified asthma, uncomplicated; E83.42 Hypomagnesemia; R74.01 Elevation of levels of liver transaminase levels; E78.5 Hyperlipidemia, unspecified; E83.52 Hypercalcemia; E86.1 Hypovolemia; E06.9 Thyroiditis, unspecified; Z20.828 Contact with and (suspected) exposure to other viral communicable diseases
CPT/HCPCS: 36415; 76536; 80053; 80305; 81001; 82150; 83036; 83690; 83735; 83880; 84100; 84439; 84443; 84479; 84484; 85025; 85610; 85730; 86376; 87081; 87086; 93005; 96361; 96374; 96375; 99291; J0696; J1630; J1720; J1885; J2405; J7030; J7042; J7060; Q0092